=== PATIENT | female | born 1970 | race Caucasian/White ===

== ENCOUNTER 2021-07-16 08:48 | Day surgery (SDC) | payer OTHER ==
[~2021-07-16] VITALS: Ht 175.3 cm; Wt 75.3 kg
[2021-07-16 09:18] VITALS: BP 109/80; PULSE 49; TEMP 97.4
[2021-07-16] MEDS ORDERED: NEURONTIN600 MG/TAB PO (09:21)
[2021-07-16] MEDS ORDERED: SINGULAIR 110 MG/TAB PO (09:21)
[2021-07-16] MEDS ORDERED: ZYRTEC 10MG10 MG PO (09:22)
[2021-07-16] MEDS ORDERED: PROTONIX20 MG PO (09:22)
[2021-07-16] MEDS ORDERED: FLONASE NASAL S16 GM NS (09:22)
[2021-07-16] MEDS ORDERED: METROGEL1% TOP (09:23)
[2021-07-16] MEDS ORDERED: [UNRECOGNIZED DRUG - OTHER] TOP (09:24)
[2021-07-16] MEDS ORDERED: NIZORAL CR 30GM TOP (09:24)
[2021-07-16 10:35] VITALS: BP 90/64; PULSE 69; TEMP 96.5
--- NOTE | 2021-07-16 10:35 | NUR ---
PATIENT TRANSPORTED PER CART FROM ENDO SUITE TO BAY 5 ACCOMPANIED BY ENDO RN. PATIENT AMBULATED FROM CART TO CHAIR WITH STEADY GAIT. PATIENT FAMILY IN ROOM. PATIENT TALKS WITH FAMILY. VERBAL REPORT GIVEN.
[2021-07-16 10:45] VITALS: BP 99/70; PULSE 59
--- NOTE | 2021-07-16 10:45 | NUR ---
VSS ON ROOM AIR. PATIENT TALKS WITH DAUGHTER. PATIENT GIVEN MUFFIN, PUDDENING AND COFFEE. DENIES PROBLEMS.
[2021-07-16 11:00] VITALS: BP 99/61; PULSE 67
--- NOTE | 2021-07-16 11:00 | NUR ---
BLOOD PRESSURE JUST BELOW BASELINE. PATIENT DENIES LIGHTHEAEDNESS AND DIZZINESS. PATIENT TOLERATES FOOD AND DRINK WITHOUT PROBLEMS. PATIENT ENCOURAGED TO DRINK. DR ROQUE HAS SPOKEN WITH PATIENT.
[2021-07-16 11:15] VITALS: BP 92/64; PULSE 64
--- NOTE | 2021-07-16 11:15 | NUR ---
VITAL SIGNS UNCHANGED. PATIENT DENIES PROBLEMS OR C/O'S. PATIENT STATES READY GO TO HOME. IV DC'D WITH CATHETER TIP INTACT. PRESSURE AND BANDAGE APPLIED. DISCHARGE INSTRUCTIONS GIVEN VERBAL AND DISCHARGE PACKET PROVIDED. QUESTIONS ANSWERED AND PATIENT AND DAUGHTER VOICED UNDERSTANDING. PT CHANGES INTO STREET CLOTHES. 1125 PATIENT DISCHARGED PER WHEEL CHAIR ACCOMPANIED BY AMB RN TO PRIVATE VECHILE DRIVEN BY DAUGHTER.
== END 2021-07-16 11:25 | disposition home or self-care (01) ==
LOC: SDCO 08:48
DX: K51.911 Ulcerative colitis, unspecified with rectal bleeding (principal); D12.5 Benign neoplasm of sigmoid colon; K57.30 Diverticulosis of large intestine without perforation or abscess without bleeding; K21.9 Gastro-esophageal reflux disease without esophagitis; J30.9 Allergic rhinitis, unspecified; M50.20 Other cervical disc displacement, unspecified cervical region; Z79.899 Other long term (current) drug therapy; Z85.828 Personal history of other malignant neoplasm of skin; Z87.19 Personal history of other diseases of the digestive system; Z80.0 Family history of malignant neoplasm of digestive organs
CPT/HCPCS: J2704; J7120